=== PATIENT | female | born 1930 | race Caucasian/White ===

== ENCOUNTER 2017-09-02 12:57 | Emergency (ER) | payer BC, MEDICARE ==
[2017-09-02] MEDS ORDERED: traMADol 50 MG TAB PO STA (14:28)
--- NOTE | 2017-09-02 15:10 | ED ---
Extremity Problem HPI - General Chief complaint: Extremity Problem,Nontraumatic Stated complaint: unable to wallk/pain Time Seen by Provider: 09/02/17 14:06 Source: patient Mode of arrival: wheelchair Limitations: no limitations - History of Present Illness Initial comments: 86-year-old female with past medical history as noted below presented for evaluation of left knee pain for the last 2 and half weeks. She states that there was no precipitating etiology of trauma, injury, fever/chills, other identifiable causes. She states that it was gradual onset and the pain is throughout her entire knee however worse on the posterior aspect. She states that it is not warm to touch and there is no overlying erythema or other physical abnormality to be seen or felt. She states the pain is worse with weightbearing or active motion however if someone nose picks up her leg and passively flexes and extends the knee she does not have pain. She has been taking Tylenol for her symptoms but states that she takes that every day for her usual aches and pains and she didn't start anything else on top of that. Came in today because she continues to have pain and it is difficult to move about the house and do her daily activities. Denies fevers, chills, nausea, vomiting, chest pain, shortness of breath, abdominal pain, lightheadedness, dizziness. - Related Data Home Medications Medication Instructions Recorded Confirmed Atorvastatin [Lipitor] 10 mg PO DAILY 09/02/17 09/02/17 Insulin NPH Hum/Reg Insulin Hm 30 unit SQ HS 09/02/17 09/02/17 [NovoLIN 70-30 100 UNIT/ML VIAL] Insulin NPH Hum/Reg Insulin Hm 50 unit SQ QAM 09/02/17 09/02/17 [NovoLIN 70-30 100 UNIT/ML VIAL] L.acidoph,Paracasei, B.lactis 1 cap PO DAILY 09/02/17 09/02/17 [Probiotic] Losartan [Cozaar] 50 mg PO DAILY 09/02/17 09/02/17 Mirabegron [Myrbetriq] 50 mg PO DAILY 09/02/17 09/02/17 Multivit-Min/FA/Lycopen/Lutein 1 tab PO DAILY 09/02/17 09/02/17 [Centrum Silver Tablet] Nystatin 100,000Unit/gm Cream 1 applic TOPICAL BID 09/02/17 09/02/17 [Mycostatin Cream] Previous Rx's Medication Instructions Recorded traMADol HCL [Ultram] 50 mg PO Q6HR PRN 3 Days #12 tab 09/02/17 Allergies Allergy/AdvReac Type Severity Reaction Status Date / Time amoxicillin [From Amoxil] Allergy Verified 09/02/17 14:28 clarithromycin [From Biaxin] Allergy Unknown Verified 09/02/17 14:28 gabapentin [From Neurontin] Allergy Unknown Verified 09/02/17 14:28 Iodinated Contrast- Oral and Allergy Unknown Verified 09/02/17 14:28 IV Dye lisinopril Allergy Unknown Verified 09/02/17 14:28 metoclopramide Allergy Unknown Verified 09/02/17 14:28 nitrofurantoin Allergy Unknown Verified 09/02/17 14:28 Penicillins Allergy Unknown Verified 09/02/17 14:28 Sulfa (Sulfonamide Allergy Unknown Verified 09/02/17 14:28 Antibiotics) terbinafine Allergy Unknown Verified 09/02/17 14:28 verapamil Allergy Unknown Verified 09/02/17 14:28 yellow dye Allergy Unknown Verified 09/02/17 14:28 Review of Systems ROS Statement: Those systems with pertinent positive or pertinent negative responses have been documented in the HPI. ROS Other: All systems not noted in ROS Statement are negative. Constitutional: Denies: fever, chills, weakness, night sweats Eyes: Denies: eye pain, eye discharge ENT: Denies: ear pain, throat pain, congestion Respiratory: Denies: cough, dyspnea Cardiovascular: Denies: chest pain, palpitations, dyspnea on exertion, syncope Endocrine: Denies: polydipsia, polyuria Gastrointestinal: Denies: abdominal pain, nausea, vomiting, diarrhea, constipation, hematemesis, melena, hematochezia Genitourinary: Denies: urgency, dysuria, frequency, hematuria Musculoskeletal: Reports: back pain (chronic), arthralgia (left knee). Denies: joint swelling, myalgia Skin: Denies: rash, lesions, change in color Neurological: Denies: headache, weakness Psychiatric: Denies: anxiety, depression Hematological/Lymphatic: Denies: easy bleeding, easy bruising Past Medical History Past Medical History: Diabetes Mellitus, Osteoarthritis (OA) Additional Past Medical History / Comment(s): chronic back pain, sciatica History of Any Multi-Drug Resistant Organisms: None Reported Past Psychological History: No Psychological Hx Reported Smoking Status: Never smoker Past Alcohol Use History: None Reported Past Drug Use History: None Reported General Exam Limitations: no limitations General appearance: alert, in no apparent distress Head exam: Present: atraumatic, normocephalic Eye exam: Present: normal appearance. Absent: scleral icterus ENT exam: Present: normal exam, normal oropharynx Neck exam: Present: normal inspection, full ROM Respiratory exam: Present: normal lung sounds bilaterally. Absent: respiratory distress, wheezes, rales, rhonchi, stridor Cardiovascular Exam: Present: regular rate, normal rhythm GI/Abdominal exam: Present: soft. Absent: distended Rectal exam: Present: deferred Extremities exam: Present: full ROM (pain with active ROM, no pain with passive ROM), tenderness (primarily posterior with intact pulse), normal capillary refill. Absent: normal inspection, pedal edema, joint swelling, calf tenderness Back exam: Present: tenderness, paraspinal tenderness (right). Absent: normal inspection, full ROM, vertebral tenderness Neurological exam: Present: alert, oriented X3 Psychiatric exam: Present: normal affect, normal mood Skin exam: Present: warm, dry, intact Course Vital Signs 09/02/17 09/02/17 13:00 16:32 Temperature 98.3 F 97.9 F Pulse Rate 78 98 Respiratory 20 16 Rate Blood Pressure 172/99 154/73 O2 Sat by Pulse 98 98 Oximetry Medical Decision Making - Medical Decision Making 86-year-old female with past medical history as above presented for evaluation of left knee pain for the last 2-1/2 weeks. Denies any identifiable etiology. On physical examination there is pain with active range of motion however no pain with passive range of motion. The joint is non-erythematous and not warm to palpation. The joint line is nontender to palpation however there is tenderness to palpation on the posterior aspect of the knee. Pulses intact and symmetrical to the right knee. Distal pulses, motor, and sensation intact and symmetrical with the right lower extremity. Will obtain US duplex and xray. X-ray revealed no acute fracture and ultrasound showed no DVT. Patient was reevaluated and continued to have intact distal pulses, sensation, and motor function. Patient was ambulated in the room and although she did have a limp and required assistance she was able to ambulate. She was informed of all results and through shared decision making it was determined that she would be discharged with instructions to follow-up with her orthopedic surgeon and given strict return instructions. The patient acknowledged an understanding of operation provided and agreed with this plan of care. Disposition Clinical Impression: Left knee pain Disposition: HOME SELF-CARE Condition: Stable Instructions: Arthritis (ED) Additional Instructions: Please use medication as discussed. Please follow up with family doctor if symptoms have not improved over the next two days. Please return to the emergency room if your symptoms increase or worsen or for any other concerns. Prescriptions: traMADol HCL [Ultram] 50 mg PO Q6HR PRN 3 Days #12 tab PRN Reason: Pain Is patient prescribed a controlled substance at d/c from ED?: Yes When asked, does pt state using other controlled substances?: No If prescribed controlled substance>3 days was MAPS reviewed?: Prescribed <3 Days If opioid is for acute pain is fill amount 7 days or less?: Yes If Rx opioid, was Start Talking consent form obtained?: Yes Referrals: Zahida Magana DO [Primary Care Provider] - 1-2 days Time of Disposition: 16:17
--- NOTE | 2017-09-02 15:19 | XR ---
EXAMINATION TYPE: XR knee 4V LT DATE OF EXAM: 09/02/2017 COMPARISON: NONE HISTORY: Pain TECHNIQUE: Four views are submitted. FINDINGS: Joint spaces are preserved. Osseous structures are intact. No acute fracture seen. Diffuse osteope rhea noted. IMPRESSION: 1. No acute fracture or dislocation.
--- NOTE | 2017-09-02 15:44 | US ---
EXAMINATION TYPE: US venous doppler duplex LE LT DATE OF EXAM: 09/02/2017 3:28 PM COMPARISON: NONE CLINICAL HISTORY: Pain. Left leg pain x couple weeks SIDE PERFORMED: Left TECHNIQUE: The lower extremity deep venous system is examined utilizing real time linear array sonog ashley with graded compression, doppler sonography and color-flow sonography. VESSELS IMAGED: External Iliac Vein (EIV) Common Femoral Vein Deep Femoral Vein Greater Saphenous Vein * Femoral Vein Popliteal Vein Small Saphenous Vein * Proximal Calf Veins (* superficial vessels) Left Leg: Appears negative for DVT IMPRESSION: 1. No diagnostic evidence of DVT.
[2017-09-02 16:33] VITALS: BP 154/73; PULSE 98; RESP 16; TEMP 97.9
== END 2017-09-02 16:29 | disposition home or self-care (01) ==
LOC: EC 12:57
DX: M25.562 Pain in left knee (principal); E11.9 Type 2 diabetes mellitus without complications; Z79.4 Long term (current) use of insulin; Z79.899 Other long term (current) drug therapy; Z88.0 Allergy status to penicillin; Z88.1 Allergy status to other antibiotic agents; Z88.2 Allergy status to sulfonamides; Z88.8 Allergy status to other drugs, medicaments and biological substances; Z91.041 Radiographic dye allergy status; Z91.048 Other nonmedicinal substance allergy status
CPT/HCPCS: 99284

== ENCOUNTER 2020-09-04 | Inpatient (IN) | payer MEDICARE | END 2020-09-04 23:15 | disposition E | DRG 215 | PROVIDERS: ADMIT Family Medicine | PROC: 5A0221D Assistance with Cardiac Output using Impeller Pump, Continuous (ICD-10-PCS; principal; 2020-09-04) | PROC: 4A023N7 Measurement of Cardiac Sampling and Pressure, Left Heart, Percutaneous Approach (ICD-10-PCS; principal; 2020-09-04) | PROC: 027034Z Dilation of Coronary Artery, One Artery with Drug-eluting Intraluminal Device, Percutaneous Approach (ICD-10-PCS; principal; 2020-09-04) | PROC: 3E033XZ Introduction of Vasopressor into Peripheral Vein, Percutaneous Approach (ICD-10-PCS; principal; 2020-09-04) | PROC: 0BH17EZ Insertion of Endotracheal Airway into Trachea, Via Natural or Artificial Opening (ICD-10-PCS; principal; 2020-09-04) | PROC: 5A12012 Performance of Cardiac Output, Single, Manual (ICD-10-PCS; principal; 2020-09-04) | PROC: 5A1935Z Respiratory Ventilation, Less than 24 Consecutive Hours (ICD-10-PCS; principal; 2020-09-04) | PROC: 02HA3RZ Insertion of Short-term External Heart Assist System into Heart, Percutaneous Approach (ICD-10-PCS; principal; 2020-09-04) | PROC: B2111ZZ Fluoroscopy of Multiple Coronary Arteries using Low Osmolar Contrast (ICD-10-PCS; principal; 2020-09-04) | CPT/HCPCS: 36415; 71045; 80053; 82550; 82553; 83690; 83735; 83880; 84484; 85025; 85610; 85730; 87635; 92950; 93005; 93454; 94002; 96374; 96375; 96376; 99291 ==